=== PATIENT | male | born 1970 | race African-American/Black ===

== ENCOUNTER 2023-03-08 15:36 | Emergency (ER) | payer MEDICAID ==
[~2023-03-08] VITALS: Ht 190.5 cm; Wt 99.7 kg
[2023-03-08] MEDS ORDERED: KETOROLAC 30MG/ML VIAL IM ONE (16:15)
[2023-03-08] MEDS ORDERED: NAPR500T7 MT (17:03)
[2023-03-08 17:21] VITALS: BP 132/78
== END 2023-03-08 17:22 | disposition home or self-care (01) ==
LOC: ER 15:36
DX: M25.462 Effusion, left knee (principal)
CPT/HCPCS: 73564; 96372; 99283; J1885